=== PATIENT | female | born 1980 ===

== ENCOUNTER 2017-04-10 15:01 | Emergency (ER) | payer OTHER ==
[~2017-04-10 15:01] MED LIST: ISOVUE-370 76%-LOCM 1 ML ONE
[2017-04-10] MEDS ORDERED: Ondansetron HCl/PF 4 MG/2 ML Vial ONE (16:01)
[2017-04-10] MEDS ORDERED: Fentanyl 100 MCG/2 ML VIAL ONE (20:10)
[2017-04-10 20:25] LABS: #Eosinphils 0.3 thou/uL (0.0-0.7); #Lymphocytes 2.3 thou/uL (1.20-3.40); #Monocytes 0.8 thou/uL (0.11-0.59); #Neutrophils 5.8 thou/uL (1.40-6.50); %Basophils 0.3 % (0.0-1.0); %Eosinophils 2.8 % (0.0-10.0); %Monocytes 8.3 % (0.0-10.0); %Neutrophils 63.6 % (42.0-75.0); Hemoglobin 9.8 g/dL (12.0-16.0); Mean Corpuscular HGB CONC 33.3 g/dL (32.0-36.0); Mean Corpuscular Hemoglobin 31.1 pg (27.0-31.0); Mean Corpuscular Volume 93.1 fl (81.0-99.0); Mean Platelet Volume 7.4 fL (7.4-10.4); Platelet Count 235 thou/uL (130-400); RBC Distribution Width 12.6 % (11.5-14.5); Red Blood Cell (RBC) Count 3.17 mill/uL (4.20-5.40); White Blood Cell (WBC) Count 9.2 thou/uL (4.8-10.8)
[2017-04-10 20:52] LABS: ALT (SGPT) 16 U/L (8-55); AST (SGOT) 19 U/L (5-34); Albumin 3.7 g/dL (3.5-5.0); Alkaline Phosphatase 68 U/L (40-150); Anion Gap 13 mmol/L (10-20); BUN (Urea Nitrogen) 5 mg/dL (7.0-18.7); Bilirubin, Total 0.4 mg/dL (0.2-1.2); CK (CPK) 42 U/L (29-168); Calc. Creatinine Clearance 0 mL/min (70-130); Calcium 8.8 mg/dL (7.8-10.44); Carbon Dioxide 22 mmol/L (22-29); Chloride 107 mmol/L (98-107); Estimated GFR-MDRD Greater than 90; Globulin 2.7 g/dL (2.4-3.5); Glucose 82 mg/dL (70-105); Potassium 4.1 mmol/L (3.5-5.1); Protein, Total 6.4 g/dL (6.0-8.3); Sodium 138 mmol/L (136-145)
--- NOTE | 2017-04-10 22:14 | CT ---
CT OF ABDOMEN AND PELVIS PERFORMED WITH INTRAVENOUS CONTRAST ENHANCEMENT: 04/10/17 HISTORY: Severe abdominal pain. History of cholecystectomy done 04/06/17. Also history of gastric bypas s done in 2012. The lung bases are clear. The patient has undergone a gastric bypass. The liver and spleen are within normal limits in size. The pancreas region appears unremarkable. The gallbladder has been removed. I n the region of the gallbladder fossa, and tracking anterior to the hepatic flexure, is a mixed sligh tly high attenuation collection, somewhat difficult to measure due to the unopacified bowel including duodenum in this region. This most likely represents some postop change probably relates to some hem atoma given the slightly higher attenuation. This collection measures approximately 3.9 x 6.6 cm in s ize. I do not see any significant free fluid within the abdomen, specifically in the region of the ri ght pericolic gutter to suggest a bile leak. There is some slight intrahepatic ductal dilatation whic h could be just on the basis of some of the compressive changes related to this probably hematoma. Right and left adrenal glands and right and left kidneys are normal in size. There is some edema mckeon ge or hematoma in the subcutaneous fat along the right flank region and there is asymmetry to the rig ht abdominal musculature suggesting there is some intramuscular hematoma present. CT OF PELVIS PERFORMED WITH CONTRAST ENHANCEMENT: Follicles are seen involving the adnexa. Do not see any significant free fluid. No free air is demons trated. IMPRESSION: 1. Mixed but slightly high attenuation collection which is in the region of the gallbladder aby a probably related to some hematoma in this region related to the recent surgery. There is also some changes in the soft tissues along the right abdominal wall musculature as discussed above. 2. Evidence of previous gastric bypass. POS: CANDIE
[2017-04-11] MEDS ORDERED: Fentanyl 100 MCG/2 ML VIAL ONE (03:50)
[2017-04-11] MEDS ORDERED: Lidocaine 5% Patch TD SCH (04:30)
[2017-04-11 05:53] LABS: #Eosinphils 0.3 thou/uL (0.0-0.7); #Lymphocytes 2.2 thou/uL (1.20-3.40); #Monocytes 0.9 thou/uL (0.11-0.59); #Neutrophils 4.9 thou/uL (1.40-6.50); %Basophils 0.4 % (0.0-1.0); %Eosinophils 3.4 % (0.0-10.0); %Lymphocytes 26.8 % (21.0-51.0); %Monocytes 10.2 % (0.0-10.0); %Neutrophils 59.2 % (42.0-75.0); Hemoglobin 9.4 g/dL (12.0-16.0); Mean Corpuscular HGB CONC 32.7 g/dL (32.0-36.0); Mean Corpuscular Hemoglobin 30.3 pg (27.0-31.0); Mean Corpuscular Volume 92.6 fl (81.0-99.0); Mean Platelet Volume 7.1 fL (7.4-10.4); Platelet Count 238 thou/uL (130-400); RBC Distribution Width 12.6 % (11.5-14.5); Red Blood Cell (RBC) Count 3.12 mill/uL (4.20-5.40); White Blood Cell (WBC) Count 8.3 thou/uL (4.8-10.8)
[2017-04-11 06:11] LABS: ALT (SGPT) 12 U/L (8-55); AST (SGOT) 13 U/L (5-34); Albumin 3.6 g/dL (3.5-5.0); Alkaline Phosphatase 65 U/L (40-150); Anion Gap 10 mmol/L (10-20); BUN (Urea Nitrogen) 8 mg/dL (7.0-18.7); Bilirubin, Total 0.4 mg/dL (0.2-1.2); Calc. Creatinine Clearance 0 mL/min (70-130); Calcium 8.8 mg/dL (7.8-10.44); Carbon Dioxide 26 mmol/L (22-29); Chloride 108 mmol/L (98-107); Estimated GFR-MDRD Greater than 90; Globulin 2.6 g/dL (2.4-3.5); Glucose 106 mg/dL (70-105); Potassium 3.5 mmol/L (3.5-5.1); Protein, Total 6.2 g/dL (6.0-8.3); Sodium 140 mmol/L (136-145)
[2017-04-11] MEDS ORDERED: Ondansetron HCl/PF 4 MG/2 ML Vial ONE ×3 (10:21→17:40)
[2017-04-11] MEDS ORDERED: Metoclopramide HCl 10 MG/2 ML VIAL ONE (11:31)
[2017-04-11] MEDS ORDERED: Lidocaine Patch Removal 1 EACH TOP SCH (16:30)
[2017-04-12] MEDS ORDERED: Lidocaine 5% Patch TD SCH (03:15)
== END 2017-04-12 16:37 | disposition short-term general hospital (02) ==
LOC: ERS 15:01
DX: K91.871 Postprocedural hematoma of a digestive system organ or structure following other procedure (principal); F17.200 Nicotine dependence, unspecified, uncomplicated; Z79.899 Other long term (current) drug therapy
CPT/HCPCS: 36415; 74177; 80053; 82550; 83690; 85025; 96361; 96374; 96375; 96376; J2270; J2405; J2765; J3010